=== PATIENT | female | born 2000 | race Hispanic/Latino ===

== ENCOUNTER 2021-01-29 04:45 | Emergency (ER) | payer OTHER ==
[2021-01-29] MEDS ORDERED: Albuterol Sulfate 2.5 mg/3 ml Neb ONE (05:18)
[2021-01-29] MEDS ORDERED: predniSONE 20 MG TAB ONE (06:16)
== END 2021-01-29 06:53 | disposition home or self-care (01) ==
LOC: CSHERS 04:45
DX: J45.901 Unspecified asthma with (acute) exacerbation (principal); T78.40XA Allergy, unspecified, initial encounter
CPT/HCPCS: 94760; J7512; J7611; J7620